=== PATIENT | female | born 1945 | race Caucasian/White ===

== ENCOUNTER 2024-01-01 23:20 | Emergency (ER) | payer OTHER ==
[2024-01-02 00:13] LABS: ALT (SGPT) 12 U/L (8-55); AST (SGOT) 15 U/L (5-34); Alkaline Phosphatase 92 U/L (40-110); Anion Gap 13 mmol/L (10-20); BUN (Urea Nitrogen) 16 mg/dL (9.8-20.1); Bilirubin, Total 0.3 mg/dL (0.2-1.2); Calc. Creatinine Clearance 0 mL/min (70-130); Calcium 7.6 mg/dL (7.8-10.44); Carbon Dioxide 21 mmol/L (23-31); Chloride 111 mmol/L (98-107); Estimated GFR 84; Globulin 1.7 g/dL (2.4-3.5); Glucose 86 mg/dL (83-110); Potassium 4.1 mmol/L (3.5-5.1); Protein, Total 4.7 g/dL (5.8-8.1); Sodium 141 mmol/L (136-145)
[2024-01-02 00:16] LABS: Hemoglobin 11.5 g/dL (12.0-16.0); MDiff Complete? YES; Mean Corpuscular HGB CONC 31.8 g/dL (32.0-36.0); Mean Corpuscular Hemoglobin 30.9 pg (27.0-31.0); Mean Corpuscular Volume 97.2 fl (78.0-98.0); Mean Platelet Volume 8.2 fL (7.4-10.4); Platelet Count 145 10x3/uL (130-400); RBC Distribution Width 12.7 % (11.5-14.5); Red Blood Cell (RBC) Count 3.71 mill/uL (4.20-5.40); White Blood Cell (WBC) Count 3.1 10x3/uL (4.8-10.8)
[2024-01-02 00:17] LABS: Band 1 % (5-11); Eosinophils 1 % (0-10); Lymphocytes 29 % (21-51); Monocytes 13 % (0-10); Neutrophil 56 % (42-75)
[2024-01-02 01:58] LABS: Bilirubin Negative (Negative); Blood, Urine Negative (Negative); Glucose, Urine (Dipstick) Negative (Negative); Ketone, Urine Trace mg/dL (Negative); Leukocyte Moderate (Negative); Nitrite Negative (Negative); Protein, Urine (Dipstick) Negative (Neg-Trace); pH, Urine 6.5 (5.0-9.0)
[2024-01-02 01:59] LABS: Bacteria/HPF 2+ HPF (None Seen); CAUTI Indications for Culture Dysuria,urgency,freq; Clarity Turbid (Clear); RBC/HPF 0-3 HPF (0-3); WBC/HPF Greater than 50 HPF (0-3)
[2024-01-02 02:00] LABS: Urine Culture Reflex Yes Yes
[2024-01-02] MEDS ORDERED: Nitrofurantoin Monohyd/M-Cryst 100 MG CAP ONE (02:16)
[2024-01-02] MEDS ORDERED: Sodium Chloride 0.9% 50 ML ONE (02:17)
[2024-01-02] MEDS ORDERED: Calcium Gluc 4.6 MEQ/10 ML (100 MG/ML) ONE (02:17)
== END 2024-01-02 02:43 | disposition home or self-care (01) ==
LOC: MADERS 23:20
DX: F03.90 Unspecified dementia, unspecified severity, without behavioral disturbance, psychotic disturbance, mood disturbance, and anxiety (principal); N39.0 Urinary tract infection, site not specified; E83.51 Hypocalcemia; K21.9 Gastro-esophageal reflux disease without esophagitis; I12.9 Hypertensive chronic kidney disease with stage 1 through stage 4 chronic kidney disease, or unspecified chronic kidney disease; N18.9 Chronic kidney disease, unspecified; Z79.82 Long term (current) use of aspirin; Z79.899 Other long term (current) drug therapy
CPT/HCPCS: 71045; 73110; 80053; 81001; 83605; 85025; 87086; J0612; 36415; 96374

== ENCOUNTER 2024-01-27 23:53 | Emergency (ER) | payer OTHER ==
[2024-01-28] MEDS ORDERED: Acetaminophen 325 MG TAB ONE (01:06)
== END 2024-01-28 04:18 ==
LOC: MADERS 23:53
DX: S52.591A Other fractures of lower end of right radius, initial encounter for closed fracture (principal); S52.611A Displaced fracture of right ulna styloid process, initial encounter for closed fracture; M19.012 Primary osteoarthritis, left shoulder; K21.9 Gastro-esophageal reflux disease without esophagitis; W06.XXXA Fall from bed, initial encounter
CPT/HCPCS: 70450; 72125; 74176